=== PATIENT | male | born 2000 | race Caucasian/White ===

== ENCOUNTER 2023-06-10 11:05 | Outpatient (CLI) | payer OTHER, SELFPAY ==
--- NOTE | ~2023-06-10 | CT_ITS ---
EXAMINATION: CT sinus wo con DATE: 06/10/2023 11:31 INDICATION: Nasal polyps. TECHNIQUE: Computed tomography (CT) of the paranasal sinuses was performed without intravenous contra st. The dose-length product was 316.52 mGy-cm. Automated exposure control and iterative reconstructio n technique were employed. COMPARISON: None FINDINGS: There is extensive sinusitis throughout the paranasal sinuses. There is occlusion of the os tiomeatal units. No significant mucoperiosteal reaction. Rightward nasal septal deviation. Mastoids a re pneumatized. IMPRESSION: 1. Pansinusitis. Reviewed, dictated and finalized at location A. IMPRESSION: 1. Pansinusitis.
== END 2023-06-10 11:06 | disposition home or self-care (01) ==
LOC: ANHIMG 11:08
PROVIDERS: PCP Family Medicine; Visit Provider Otolaryngology
DX: J32.4 Chronic pansinusitis (principal); J33.9 Nasal polyp, unspecified
CPT/HCPCS: 70486

== ENCOUNTER 2023-08-14 02:27 | Day surgery (SDC) | payer OTHER, SELFPAY ==
[2023-08-06 14:31] VITALS: BMI 24.3
--- NOTE | 2023-08-06 14:41 | PC.NURSE ---
Report to the Outpatient Waiting Room, entrance under the green pavilion located off [facility], at 0830on 08/14/23. Planned Procedure Time: 1030. Time changes happen often and if your time is changed the preop area will call you the afternoon before. - You and your visitor will be asked to self-screen and do not enter if you have any COVID symptoms. - A mask is optional within the hospital at this time. Patients may have clear liquids (water, carbonated beverages, clear teas, apple juice) until 3 hours prior to surgery with a maximum of 20 ounces. - No food from midnight until time of surgery Take the following medications with a SIP of water the morning of surgery: n/a DO NOT STOP ANY OF YOUR OTHER PRESCRIPTION MEDICATIONS PRIOR TO SURGERY ?EXCEPT THE FOLLOWING Medications to discontinue per physician n/a Date to take last dose n/a Please no make-up, nail irish, hairspray, perfume, deodorant, or body powder the day of surgery. No jewelry (including any body piercings) or valuables the day of surgery, leave them at home. Please take a shower or bath the night before, or the morning of, surgery with an antibacterial soap. Wear comfortable, loose fitting clothing. - Jewelry must be removed prior to entering the operating room. Rings and piercings that are not removed may be cut off. - The hospital will not accept responsibility for valuables. - Please leave all valuables, including medications, at home the day of surgery. If you are going home after surgery, a licensed yard truck driver must drive you home. - NO public transportation without another adult if you receive anesthesia. - We recommend that an adult stay with you for 24 hours following discharge. - We also recommend that you do not drive, make important decision, drink alcoholic beverages, or take any drugs that were not prescribed by your health care provider for at least 24 hours after your discharge time. Follow any additional instructions given to you from your surgeon. If you or anyone in your household have experienced Covid symptoms in the past week, please notify your surgeon or the nurse liaison at the phone number below for possible testing. Telephone instructions given to patient and asked if any additional questions and then verbalized understanding. Patient advised to call surgeon office or pre surgery nurse liaison [phone] if any additional questions.
--- NOTE | 2023-08-13 12:20 | PM.IMHP ---
H&P: HPI History of Present Illness Date/Time: 08/13/23 12:20 Chief Complaint: nasal polyps obstruction congestion recurrent sinusitis chronic sinusitis septal deviation turbinate hypertrophy Narrative: plan procedure Review of Systems Review of Systems: All systems reviewed & are unremarkable except as noted in HPI and below PMFSH Past Medical History Medical History Environmental and seasonal allergies Marijuana smoker Family History Family History Father Hypertension Heart disease Mother Depression Social History Social History (Updated 01/25/23 @ 07:51 by Corry Becker CMA) Social History: Smoking status: Never smoker Tobacco type: e-cigarettes/vaping Second hand tobacco smoke exposure: No Additional smoking assessment comments: vaped 1 yr-quit 5 yrs ago Alcohol intake: current Drinks per week: 2 Substance use: current Substance use type: marijuana Other substance usage details: daily Last use: Pt smokes regularly Lack of Transportation: No Lack of Food: Never True Current Housing: I Have Housing Concerned About Future Housing: No Difficulty Paying Gas/Electric Bills: No Difficulty Paying for Meds: No Currently Unemployed: No Education: Associate Degree Difficulty w/ Childcare or Family Care: No Living arrangements: with family Occupation/Education: occupation Gender identity (if verbalized by the patient): Male Sexual Orientation (if Verbalized by the Patient): Straight or Heterosexual Spiritual care concerns: No Meds Home Medications and Allergies Home Medications Medication Instructions Recorded Confirmed Type azelastine 137 mcg (0.1 %) nasal 137 mcg (0.137 mL) intranasal Q12H 12/22/22 08/06/23 Rx spray aerosol #30 mL fluticasone propionate 50 1 spray intranasal BID #16.8 mL 12/22/22 08/06/23 Rx mcg/actuation nasal spray,suspension montelukast 10 mg tablet 10 mg PO QHS #90 tabs 12/22/22 08/06/23 Rx budesonide 0.25 mg/2 mL suspension 0.25 mg (2 mL) irrigation BID #120 01/25/23 08/06/23 Rx for nebulization mL prednisone 10 mg tablet 10 mg PO .daily #5 tabs 08/09/23 08/09/23 Rx Allergies Allergy/AdvReac Type Severity Reaction Status Date / Time No Known Allergies Allergy Unverified 08/06/23 14:28 Exam Narrative: polyps septal deviation large turbinates chronic appearing sinuses Assessment and Plan Assessment and plan (1) Nasal congestion: Code(s): R09.81 - Nasal congestion Status: Acute Assessment and Plan: plan OR image guided endoscopic bilateral maxillary antrostomies total ethmoidectomies frontal sinusotomies sphenoidotomies. Will use propel stents as well. Will do the inferior turbinates reduction and outfracture bilaterally. Likely will have to do endoscopic assisted septoplasty will try to avoid if possible. Risks were discussed including bleeding infection CSF leak brain brain damage change in vision total blindness failure to resolve symptoms need for further procedures and hair was combed narcotic use septal perforation change to cosmetic appearance failure to resolve symptoms. Need for prolonged use of antibiotics and steroids. Need for time off work time off school. Patient voiced understanding of these risks and agreed. Also damage to any structure of the clavicle by myself. Damage to any structure during adduction and maintenance of anesthesia. (2) Nasal obstruction: Code(s): J34.89 - Other specified disorders of nose and nasal sinuses Status: Acute (3) Chronic sinusitis: Code(s): J32.9 - Chronic sinusitis, unspecified Status: Acute (4) Hypertrophy of both inferior nasal turbinates: Code(s): J34.3 - Hypertrophy of nasal turbinates Status: Acute (5) Nasal septal deviation: Code(s): J
[2023-08-14] VITALS (10 sets, daily range): BP systolic 112–144; BP diastolic 65–97; PULSE 59–109; RESP 12–20; TEMP 36.3–36.7; O2SAT 100
--- NOTE | 2023-08-14 07:16 | WPDHPUPDATE1 ---
History and Physical Update Update Date/Time: 08/14/23 07:16 History and Physical has been reviewed, including an updated exam of the patient. There are NO changes in the patient's condition. Risks, benefits, and alternatives have been discussed and questions answered. Patient agrees to proceed with procedure.
--- NOTE | 2023-08-14 08:39 | WPDANESEPPF ---
Anes - Initial Pre Proc Eval Procedure: Operation Date: 08/14/23 11:15 Proposed Procedures p Image Guided Bilateral Endoscopic Bilateral Maxillary Antrostomy, Total Ethmoidectomy, Sphenoidotomy, Frontal Sinusotomy, Middle Turbinectomy, Nasal Polypectomy, Bilateral Inferior Turbinate Reduction with Outfracture, - Destin Baltazar MD s Septoplasty - Destin Baltazar MD Date/Time: 08/14/23 08:39 Surgeon: Destin Baltazar MD Pre Op Diagnosis: chronic sinusitis, septal dev Patient Data Age: 23 Gender: M Height: 1.75 m Weight: 74.84 kg Allergies Allergy/AdvReac Type Severity Reaction Status Date / Time No Known Allergies Allergy Verified 08/14/23 09:24 Home Medications Medication Instructions Recorded Confirmed Type azelastine 137 mcg (0.1 %) nasal 137 mcg (0.137 mL) intranasal Q12H 12/22/22 08/14/23 Rx spray aerosol #30 mL fluticasone propionate 50 1 spray intranasal BID #16.8 mL 12/22/22 08/14/23 Rx mcg/actuation nasal spray,suspension montelukast 10 mg tablet 10 mg PO QHS #90 tabs 12/22/22 08/14/23 Rx budesonide 0.25 mg/2 mL suspension 0.25 mg (2 mL) irrigation BID #120 01/25/23 08/14/23 Rx for nebulization mL prednisone 10 mg tablet 10 mg PO .daily #5 tabs 08/09/23 08/09/23 Rx Patient hx anesthesia problems: none Family hx anesthesia problems: none Results Review: All pre-operative results and documents have been reviewed as part of the pre-operative evaluation. [facility] Past Medical History Medical History Environmental and seasonal allergies Marijuana smoker Family History Family History Father Hypertension Heart disease Mother Depression Social History Social History (Updated 01/25/23 @ 07:51 by Corry Becker CMA) Social History: Smoking status: Never smoker Tobacco type: e-cigarettes/vaping Second hand tobacco smoke exposure: No Additional smoking assessment comments: vaped 1 yr-quit 5 yrs ago Alcohol intake: current Drinks per week: 2 Substance use: current Substance use type: marijuana Other substance usage details: daily Last use: Pt smokes regularly Lack of Transportation: No Lack of Food: Never True Current Housing: I Have Housing Concerned About Future Housing: No Difficulty Paying Gas/Electric Bills: No Difficulty Paying for Meds: No Currently Unemployed: No Education: Associate Degree Difficulty w/ Childcare or Family Care: No Living arrangements: with family Occupation/Education: occupation Gender identity (if verbalized by the patient): Male Sexual Orientation (if Verbalized by the Patient): Straight or Heterosexual Spiritual care concerns: No Anes - Eval Final PreProcedure Day of Procedure 08/14/23 08:39 Patient weight: normal Heart: regular rate and rhythm Lungs: clear to auscultation and normal air movement Airway: Mallampati scale class II Neurological: alert and oriented Last oral intake: >/= 8 hours ASA classification: II Emergent: no Anesthetic plan: proceed Anesthesia type and monitoring: general ETT and standard monitoring Results Review: All pre-operative results and documents have been reviewed as part of the pre-operative evaluation. Informed Consent: The patient's anesthetic plan and its attendant risks and benefits were discussed with the patient/family/POA. Questions were solicited and answers provided to the satisfaction of the patient/family/POA.
[2023-08-14] MEDS: LACTATED RINGERS 1,000 ML 30 ML IV CONT ×3 (10:22→16:54)
[2023-08-14] MEDS: ACETAMINOPHEN 500 MG TABLET 1000 MG PO (10:23)
[2023-08-14] MEDS: ceFAZolin 2 GM/D5W 50 ML 2 GM/50 ML BAG IVPB (11:49)
[2023-08-14] MEDS: LIDO 1%/EPINEPHRINE 1:100,000 50 ML VIAL INFILTRATE (12:20)
[2023-08-14] MEDS: OXYMETAZOLINE HCL 0.05% NAS 15 ML BTL (*BKC) 1 SPRAY NASAL (12:21)
[2023-08-14] MEDS: SCOPOLAMINE 1 MG PATCH 1 PATCH TRANSDERM (16:48)
[2023-08-14] MEDS: fentaNYL CITRATE INJ (*CRX) 100 MCG/2 ML VIAL 25 MCG IV PUSH ×2 (16:52→17:01)
[2023-08-14] MEDS: diphenhydrAMINE HCl INJ 50 MG/ML VIAL 25 MG IV PUSH (17:03)
--- NOTE | 2023-08-14 17:23 | P.OP_ITS ---
Procedure Note - Detailed Date of Procedure 08/14/23 Pre-op Diagnosis chronic sinusitis, septal deviation, nasal Polyps turbinate hypertrophy nasal obstruction nasal congestion Post-op Diagnosis Same Procedure Performed endoscopic assisted septoplasty, inferior turbinate reduction with outfracture bilaterally, bilateral middle turbinectomy, bilateral image guided endoscopic frontal sinusotomies with propel placement total ethmoidectomies maxillary antrostomies sphenoidotomies. Surgeon Destin Baltazar MD Anesthesia General Indications See above Findings diffuse polypoid disease filling both jacki as well as the central compartment. Blood loss about 125 cc. No damage to orbit septum skull base anterior ethmoidal arteries. Patient tolerated the procedure well Description of Procedure patient identified consent verified preop. Patient brought to the operating room. Time-out performed. General anesthesia induced endotracheal tube secured airway. Patient preppedDraped position procedure confirmed 2nd time-out performed. Image guidance initiating confirmed. Afrin-soaked pledgets placed for 5 minutes then removed. 0 degree endoscope utilized upfront turbinate was deviated sorry septum is deviated to the right obstructing the sinonasal passages. Total of 13 cc 1% lidocaine 1 100,000 parts epinephrine injected the bilateral inferior turbinates bilateral bilateral nasal septum as well as bi lateral middle turbinates stocks. [place] incision made left-sided 15 blade. Left nasal septal flap elevated with 7 Pashto suction no tears right nasal septal flap elevated with 7 Pashto suction no tears. Deviated septum removed Pernell Esteves forceps Brittany forceps and osteotome. Kill incision closed with 4 interrupted 5 0 fast gut sutures. Quilting stitch placed which included a it was a 4-0 plain gut on a Tee. Turbinates inferior turbinates reduced submucosal plane using microdebrider with a turbinate blade Avtar 2.5. They were then outfractured. Right-sided tore a little bit anteriorly which is unfortunate. [place] tips cauterized Bovie suction electrocautery setting of 15. Maxillary antrostomies sorry middle turbinates were very large jacki full of polyps the middle turbinates were resected bilaterally there stocks eye was straight through cut stocks were cauterized Bovie suction electrocautery setting of 15. Maxillary antrostomies performed with microdebrider rad 60 microdebrider double ball tip probe down-biting stone burger backbiter and straight through cut. Great care was taken to not injure the orbit as well as to not injure the nasolacrimal duct. Total ethmoids performed under image guidance with microdebrider and Kerrison. Sphenoidotomies performed with Kerrison sphenoid punch again image guidance. Posterior septal arteries cauterized bilaterally. Frontal sinusotomies performed under image guidance with frontal sinus instruments including Hosemann and Cobra. Bilateral sh 2b little bit of a drill out the anterior nasal crest was drilled bilaterally. Propel stents placed bilaterally. Blood loss 125 cc. Lebron splints placed sutured anteriorly after Nova pack was placed bilaterally. Wounds were copiously irrigated with sterile normal saline. Blood loss 125 cc. Care the patient given Anesthesiology. I performed all dictated portions of procedure. No complications. Estimated Blood Loss 125 Drains No Packing Yes ( Nova pack) Pathology None sent Complications No immediate complications Condition Stable Disposition PACU [facility] Billing Surgery - Charge Forward: Surgery Billing
[2023-08-14] MEDS: PROMETHAZINE HCL 25 MG/ML AMPUL 12.5 MG IV PUSH (18:19)
== END 2023-08-14 19:11 | disposition home or self-care (01) ==
PROVIDERS: PCP Family Medicine; Visit Provider Otolaryngology
PROC: (CPT 31256; principal; 2023-08-14 11:15)
PROC: (CPT 30520; 2023-08-14 11:15)
DX: J32.9 Chronic sinusitis, unspecified (principal); J34.3 Hypertrophy of nasal turbinates; J34.2 Deviated nasal septum; J33.9 Nasal polyp, unspecified; R09.81 Nasal congestion; J34.89 Other specified disorders of nose and nasal sinuses; F12.90 Cannabis use, unspecified, uncomplicated; Z87.891 Personal history of nicotine dependence; Z79.51 Long term (current) use of inhaled steroids
CPT/HCPCS: 31256; 31257; 31276; 61782; 30520; 30140; A9270; C2625; J0690; J1100; J1200; J2250; J2405; J2550; J2704; J3010; J7040; J7120

== ENCOUNTER 2023-08-28 05:46 | Emergency (ER) | payer OTHER, SELFPAY ==
[2023-08-28 05:48] VITALS: BP 129/67; PULSE 99; RESP 20; O2SAT 99
[2023-08-28 05:53] VITALS: TEMP 36.8
--- NOTE | 2023-08-28 05:53 | ECG_ITS ---
Measurements Intervals [place] Rate: 84 P: 62 NM: 148 QRS: 65 QRSD: 97 T: 42 QT: 343 QTc: 407 Interpretive Statements SINUS RHYTHM INCOMPLETE RIGHT BUNDLE BRANCH BLOCK MINIMAL Q WAVES- INF/LAT LEADS ST ELEVATION IN DIFFUSE LEADS, PROBABLY EARLY REPOLARIZATION BASELINE WANDER- I, II, III BORDERLINE ECG NO PREVIOUS ECG AVAILABLE FOR COMPARISON Electronically Signed On 08-28-2023 6:01:37 AVID EDITOR by Edilson Boone D.O.
[2023-08-28 06:00] VITALS: BP 115/72; PULSE 86; RESP 14; O2SAT 99
[2023-08-28 06:02] LABS: Glucose Point of Care 98 mg/dl (65-105)
--- NOTE | 2023-08-28 06:07 | ED.GENADULT ---
HPI - General Adult General Chief complaint: Syncope Stated complaint: Syncopal Episode Time Seen by Provider: 08/28/23 06:00 History of Present Illness HPI narrative: patient is a 23-year-old gentleman who presents to emergency department with chief complaint of syncopal episode. Patient reports his getting an IV for induction of labor and got very lightheaded and then passed out patient reports has a little bit of a headache afterwards denies neck pain denies any other injuries Related Data Allergies Allergy/AdvReac Type Severity Reaction Status Date / Time No Known Allergies Allergy Verified 08/27/23 13:51 Review of Systems Review of Systems: A 10 system review of systems was completed on the patient and is negative except for what is stated in the HPI. Nursing and ancillary documentation was reviewed. PMFSH Past Medical History Medical History Environmental and seasonal allergies Marijuana smoker Family History Family History Father Hypertension Heart disease Mother Depression Social History Social History Social History: Smoking status: Never smoker Tobacco type: e-cigarettes/vaping Second hand tobacco smoke exposure: No Additional smoking assessment comments: vaped 1 yr-quit 5 yrs ago Alcohol intake: current Drinks per week: 2 Substance use: current Substance use type: marijuana Other substance usage details: daily Last use: Pt smokes regularly Lack of Transportation: No Lack of Food: Never True Current Housing: I Have Housing Concerned About Future Housing: No Difficulty Paying Gas/Electric Bills: No Difficulty Paying for Meds: No Currently Unemployed: No Education: Associate Degree Difficulty w/ Childcare or Family Care: No Living arrangements: with family Occupation/Education: occupation Gender identity (if verbalized by the patient): Male Sexual Orientation (if Verbalized by the Patient): Straight or Heterosexual Spiritual care concerns: No Exam Narrative: GENERAL: Well-appearing, well-nourished, and in no acute distress. HEAD: Normocephalic, atraumatic. EYES: PERRLA and EOMI. ENT: Nares clear, no rhinorrhea or epistaxis. Mucous membranes moist. NECK: Supple. CHEST: Clear to auscultation. No respiratory distress. HEART: Regular rate and rhythm. No murmur heard. Normal peripheral pulses. ABDOMEN: Soft, nontender, nondistended, normal active bowel sounds. EXTREMITIES: Normal range of motion. No edema. SKIN: Warm, dry, no rash. NEURO: No focal deficits. Alert and oriented x3. PSYCH: Normal mood and affect. Course Vital Signs Vital signs: Vital Signs Pulse Rate 99 08/28/23 05:48 Respiratory Rate 20 08/28/23 05:48 Blood Pressure 129/67 08/28/23 05:48 Pulse Oximetry 99 08/28/23 05:48 Oxygen Delivery Room Air 08/28/23 05:48 Temperature 36.8 C 08/28/23 05:53 Pulse Rate 99 08/28/23 05:48 Respiratory Rate 20 08/28/23 05:48 Blood Pressure 129/67 08/28/23 05:48 Pulse Oximetry 99 08/28/23 05:48 Oxygen Delivery Room Air 08/28/23 05:48 Medical Decision Making [facility] Narrative Medical decision making narrative: differential diagnosis includes vasovagal syncope, cardiogenic syncope, patient's clinical picture is consistent with vasovagal syncope. The patient was observed in the emergency department EKG showed no acute ischemic changes and no dysrhythmia the patient was ambulated will be discharged home Vital Signs Vital Signs: Vital Signs Pulse Rate 99 08/28/23 05:48 Respiratory Rate 20 08/28/23 05:48 Blood Pressure 129/67 08/28/23 05:48 Pulse Oximetry 99 08/28/23 05:48 Oxygen Delivery Room Air 08/28/23 05:48 Temperature 36.8 C 08/28/23 05:53 Pulse Rate 99
[2023-08-28] MEDS: ACETAMINOPHEN 500 MG TABLET 1000 MG PO (06:26)
== END 2023-08-28 06:40 | disposition home or self-care (01) ==
LOC: ANHED 06:13
PROVIDERS: Emergency Provider Emergency Medicine; PCP Family Medicine
DX: R55 Syncope and collapse (principal)
CPT/HCPCS: 82948; 93005; 99283; A9270

== ENCOUNTER 2023-09-03 19:22 | Outpatient (NON) | payer OTHER, SELFPAY | END 2023-09-03 19:23 | disposition home or self-care (01) | LOC: ANHLAB 19:24 | PROVIDERS: PCP Family Medicine; Visit Provider Otolaryngology | DX: J32.9 Chronic sinusitis, unspecified (principal) | CPT/HCPCS: 87070; 87075; 87077; 87186; 87205 ==